=== PATIENT | male | born 1980 | race Caucasian/White ===

== ENCOUNTER → 2019-06-06 09:10 | Outpatient (BNVA) | payer BC, SELFPAY | PROVIDERS: Family Provider Family Medicine; PCP Family Medicine; Visit Provider Specialist | DX: G43.711 Chronic migraine without aura, intractable, with status migrainosus (principal); M50.022 Cervical disc disorder at C5-C6 level with myelopathy | CPT/HCPCS: 64615; 99212; J0585 ==

== ENCOUNTER → 2019-09-26 09:26 | Outpatient (BNVA) | payer BC, SELFPAY | PROVIDERS: Family Provider Family Medicine; PCP Family Medicine; Visit Provider Specialist | DX: G43.711 Chronic migraine without aura, intractable, with status migrainosus (principal); M50.022 Cervical disc disorder at C5-C6 level with myelopathy | CPT/HCPCS: 64615; 99212; J0585 ==

== ENCOUNTER → 2021-09-28 12:30 | Outpatient (BNVA) | payer BC, SELFPAY | PROVIDERS: Family Provider Family Medicine; PCP Family Medicine; Visit Provider Family Medicine | DX: Z01.89 Encounter for other specified special examinations (principal) | CPT/HCPCS: 80053; 80061 ==

== ENCOUNTER 2023-08-08 10:47 | Outpatient (RCR) | payer BC, SELFPAY | END 2023-09-05 23:59 | disposition home or self-care (01) | LOC: SOT 10:47 | PROVIDERS: PCP Family Medicine; Visit Provider Orthopaedic Surgery Sports Medicine | DX: G56.33 Lesion of radial nerve, bilateral upper limbs (principal); M77.11 Lateral epicondylitis, right elbow | CPT/HCPCS: 97035; 97110; 97140; 97166; 97530; G0283 ==

== ENCOUNTER → 2024-11-21 14:54 | Outpatient (BNVA) | payer BC, SELFPAY | PROVIDERS: PCP Family Medicine; Visit Provider Registered Nurse Neonatal Intensive Care | DX: R06.00 Dyspnea, unspecified (principal); R06.2 Wheezing; D71 Functional disorders of polymorphonuclear neutrophils | CPT/HCPCS: 71046 ==

== ENCOUNTER 2025-01-26 13:40 | Emergency (ER) | payer BC, SELFPAY ==
[2025-01-26 13:44] VITALS: BP 151/85; PULSE 104; RESP 16; TEMP 36.9; O2SAT 100
--- OUTSIDE RECORDS SUMMARY | 2025-01-26 13:44 | XMS_ITS | Encounter Summary ---
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
--- OUTSIDE RECORDS SUMMARY | 2025-01-26 13:44 | XMS_ITS | Encounter Summary ---
Author Organization [facility] Address [address] [place] [address] Care Team Providers Care Pest Technician Name Role Phone Unavailable Primary Care Provider Unavailabl e Encounter Details Date Type Department Care Team (Latest Contact Info) Description 10/26/1998 Outpatient Historical [facility] Gibran Ahumada, Schuyler aHhn MD [address] [place] [id number] Chest pain, unspecified (Primary Dx); Other dyspnea and respiratory abnormality Social History Tobacco Use Types Packs/Day Years Used Date Smoking Tobacco: Never Assessed Sex and Gender Information Value Date Recorded Sex Assigned at Not on file 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
--- OUTSIDE RECORDS SUMMARY | 2025-01-26 13:44 | XMS_ITS | Encounter Summary ---
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
--- OUTSIDE RECORDS SUMMARY | 2025-01-26 13:44 | XMS_ITS | Encounter Summary ---
Author Organization [facility] Address [address] [place] [address] Care Team Providers Care Sealing And Canceling Machine Operator Name Role Phone Unavailable Primary Care Provider Unavailabl e Encounter Details Date Type Department Care Team (Latest Contact Info) Description 06/19/2001 Outpatient Historical [facility] Andrade Kennedy MD [address] [place] [address] ACUTE PHARYNGITIS (Primary Dx); ACUTE TONSILLITIS; TINNITUS NOS Social History Tobacco Use Types Packs/Day Years Used Date Smoking Tobacco: Never Assessed Sex and Gender Information Value Date Recorded Sex Assigned at Not on file 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
--- OUTSIDE RECORDS SUMMARY | 2025-01-26 13:44 | XMS_ITS | Encounter Summary ---
Author Organization [facility] Address [address] [place] [address] Care Team Providers Care Legal Billing Coordinator Name Role Phone Unavailable Primary Care Provider Unavailabl e Encounter Details Date Type Department Care Team (Latest Contact Info) Description 11/02/2000 Outpatient Historical [facility] Gibran Ahumada, Schuyler Hahn MD [address] [place] [phone] Acute sinusitis, unspecified (Primary Dx); Acute pharyngitis Social History Tobacco Use Types Packs/Day Years Used Date Smoking Tobacco: Never Assessed Sex and Gender Information Value Date Recorded Sex Assigned at Not on file 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
--- OUTSIDE RECORDS SUMMARY | 2025-01-26 13:44 | XMS_ITS | Encounter Summary ---
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
--- OUTSIDE RECORDS SUMMARY | 2025-01-26 13:44 | XMS_ITS | Encounter Summary ---
Author Organization [facility] Address [address] [place] [address] Care Team Providers Care Shank Breaker Name Role Phone Unavailable Primary Care Provider Unavailabl e Encounter Details Date Type Department Care Team (Late st Contact Info) Description 03/13/2001 Outpatient Historical [facility] Malachi Conroy MD [address], [place] [id number] DENTAL CARIES (Primary Dx) Social History Tobacco Use Types Packs/Day Years Used Date Smoking Tobacco: Never Assessed Sex and Gender Information Value Date Recorded Sex Assigned at Not on file 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
--- OUTSIDE RECORDS SUMMARY | 2025-01-26 13:44 | XMS_ITS | Clinical Summary ---
Author Organization [employer] Address [address] 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
--- NOTE | 2025-01-26 13:51 | CTR_ITS ---
PROCEDURE INFORMATION: Exam: CT Abdomen And Pelvis With Contrast Exam date and time: 01/26/2025 2:03 PM Age: 44 years old Clinical indication: Abdominal pain; Localized; Right upper quadrant (ruq); Additional info: Abd pain TECHNIQUE: Imaging protocol: Computed tomography of the abdomen and pelvis with contrast. Radiation optimization: All CT scans at this facility use at least one of these dose optimization techniques: automated exposure control; mA and/or kV adjustment per patient size (includes targeted exams where dose is matched to clinical indication); or iterative reconstruction. Contrast material: OMNI 350; Contrast volume: 100 ml; Contrast route: INTRAVENOUS (IV); COMPARISON: CR XR chest 2V* [id number] 11/21/2024 2:57 PM RADIATION DOSE METRICS: Total DLP (mGy-cm): 931.13 FINDINGS: Liver: Hepatomegaly. The liver is diffusely decreased in density, compatible with hepatic steatosis. No liver mass. Gallbladder and biliary ducts: No evidence of calcified intraluminal gallstones. No pericholecystic inflammatory changes.There is no evidence of biliary ductal dilation. Pancreas: The pancreas is normal. No mass. Spleen: The spleen is normal. Adrenal glands: The adrenal glands are normal. Kidneys and ureters: No renal mass or hydronephrosis. Stomach and bowel: The colon is collapsed and diffuse mural thickening could be present. No pericolonic inflammatory changes. Bowel caliber is normal. Appendix: Normal appendix. Intraperitoneal space: No significant peritoneal free fluid. No free peritoneal air. Vasculature: Aortic caliber is normal. Lymph nodes: No lymph node enlargement. Urinary bladder: No focal wall thickening of the urinary bladder. Reproductive: Visualized portions of the male reproductive tract are unremarkable, though routine CT is limited in this regard. Bones/joints: Subarticular sclerotic densities in the femoral heads concerning for avascular necrosis. Femoral head articular contour remains normal. No other acute osseous abnormality. Soft tissues: Unremarkable. CT/CT abdomen pelvis w con* [id number] IMPRESSION: 1. The colon is collapsed and diffuse mural thickening could be present. Correlate clinically for the possibility of colitis. 2. Hepatomegaly and hepatic steatosis.
--- NOTE | 2025-01-26 13:52 | W.ED.ABDPA2 ---
HPI - Abdominal Pain General: Chief Complaint: Abdominal Pain Stated Complaint: mass on adb Time Seen by Provider: 01/26/25 13:42 Source: patient Mode of arrival: ambulatory Limitations: no limitations History of Present Illness: 44-year-old male states been having right upper quadrant pain over the last 2 weeks. He states he feels like he has a knot in the right upper part of his stomach that is tender to touch. 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 states pain is much worse with palpation denies any vomiting diarrhea or fever Associated Symptoms: Denies fever(s), nausea and vomiting Related Data Home Medications ?Medication ?Instructions ?Recorded ?Confirmed loratadine 10 mg tablet (Claritin) 10 mg PO DAILY 01/26/25 01/26/25 pantoprazole 40 mg tablet,delayed 40 mg PO DAILY 01/26/25 01/26/25 release Previous Rx's ?Medication ?Instructions ?Recorded albuterol sulfate 90 mcg/actuation 2 puff inhalation Q6H PRN 11/21/24 aerosol inhaler (Ventolin HFA) shortness of breath or wheezing #8.5 grams lorazepam 1 mg tablet 1 mg PO BID PRN anxiety/sleep #120 01/08/25 tabs hydrocodone 10 mg-acetaminophen 1 tab PO TID PRN pain 1 month #90 01/13/25 325 mg tablet tabs Allergies Allergy/AdvReac Type Severity Reaction Status Date / Time metaxalone (From Skelaxin) Allergy Intermediate ADR-Anxiety Verified 01/26/25 13:49 Review of Systems Const: Denies: fever(s) Card: Denies: chest pain GI: Reports: abdominal pain; Denies: nausea or vomiting : Denies: flank pain or difficulty urinating [facility] PFSH: Medical History Allergic rhinitis due to allergen Acute pharyngitis Social History Smoking and tobacco/nicotine status: current every day tobacco/nicotine user Physical Exam Const: COMMON NORMALS: no acute distress, patient oriented x3 and healthy appearing HENMT: COMMON NORMALS: normocephalic and atraumatic HEAD & SCALP: normocephalic and atraumatic Neck/C-Spine: COMMON NORMALS: full ROM and supple Chest: COMMONS NORMALS: normal inspection of the chest Resp: COMMON NORMALS: normal respiratory effort Cardio: COMMON NORMALS: regular rate RATE: regular rate GI: COMMON NORMALS: Normal to inspection, nondistended, normoactive bowel sounds present, Soft to palpation and no masses PALPATION: Yes Soft to palpation OTHER: tenderness to ruq Extremity: COMMON NORMALS: normal to inspection and full ROM Neuro: COMMON NORMALS: patient oriented x3, moves all extremities and no focal motor deficits Psych: COMMON NORMALS: mental status grossly normal, Normal thought process present and cooperative THOUGHT PROCESS: Normal thought process present Skin: COMMON NORMALS: no rashes or lesions noted and no wounds GENERAL SKIN EXAM: no rashes or lesions noted Course Vital Signs: Vital signs: Vital Signs Temperature 98.5 F 01/26/25 13:44 Pulse Rate 104 H 01/26/25 13:44 Respiratory Rate 17 01/26/25 14:15 Blood Pressure 133/90 01/26/25 14:28 Pulse Oximetry 93 01/26/25 14:28 Oxygen Delivery Me thod Room Air 01/26/25 14:28 MDM - Abdominal Pain Medical Decision Making Patient presents here with abdominal pain is likely muscular in nature CT scan showed no acute findings his symptoms are not consistent with colitis his white count electrolytes are all normal he feels improved abdominal exam at discharge is benign I did review labs and film with patient he stable for discharge he is to follow-up with his PCP and return if worsening. Differential Diagnosis Likely abdominal pain, acute appendicitis, constipation, diverticulitis, gastroenteritis, pancreatitis and small bowel obstruction Medical Records I reviewed the patient's medical records. Lab Data I reviewed the patient's lab results. 01/26/25 14:00 01/26/25 14:00 Labs/Radiology: Radiology Impressions Abdomen/Pelvis CT 01/26/25 13:51 IMPRESSION: 1. The colon is collapsed and diffuse mural thickening could be present. Correlate clinically for the possibility of colitis. 2. Hepatomegaly and hepatic steatosis. Laboratory Results WBC 8.72 10^3/uL (3.29-11.43) 01/26/25 14:00 RBC 5.54 10^6/uL (3.85-5.65) 01/26/25 14:00 Hgb 16.30 g/dL (11.27-16.99) 01/26/25 14:00 Hct 48.7 % (37-53) 01/26/25 14:00 MCV 87.9 fl (82-101) 01/26/25 14:00 MCH 29.4 pg (27-33) 01/26/25 14:00 MCHC 33.5 g/dL (30-55) 01/26/25 14:00 RDW 14.3 % (12.1-15.1) 01/26/25 14:00 Plt Count 177 10^3/cmm (157-399) 01/26/25 14:00 MPV 9.5 fL (7.4-10.4) 01/26/25 14:00 Neut % (Auto) 71.3 % 01/26/25 14:00 Lymph % (Auto) 17.4 % 01/26/25 14:00 [place] % (Auto) 10.6 % 01/26/25 14:00 Eos % (Auto) 0.2 % 01/26/25 14:00 Baso % (Auto) 0.2 % 01/26/25 14:00 Neut # (Auto) 6.21 10^3/uL (1.8-7.7) 01/26/25 14:00 Lymph # (Auto) 1.5 10^3/uL (0.8-4.8) 01/26/25 14:00 [place] # (Auto) 0.9 10^3/uL (0.2-0.9) 01/26/25 14:00 Eos # (Auto) 0.0 10^3/uL (0.0-0.8) 01/26/25 14:00 Baso # (Auto) 0.0 10^3/uL (0.0-0.1) 01/26/25 14:00 Nucleated RBC % (auto) 0 % 01/26/25 14:00 Nucleated RBCs # 0.0 /100WBC 01/26/25 14:00 Sodium 134 mmol/L (136-145) L 01/26/25 14:00 Potassium 4.1 mmol/L (3.5-5.1) 01/26/25 14:00 Chloride 98 mmol/L (98-107) 01/26/25 14:00 Carbon Dioxide 22 mmol/L (22-29) 01/26/25 14:00 Anion Gap 18.1 (5-19) 01/26/25 14:00 BUN 17 mg/dL (6-20) 01/26/25 14:00 Creatinine 0.9 mg/dL (0.7-1.2) 01/26/25 14:00 GFR Calculation 91.3 mL/min (90-130) 01/26/25 14:00 Glucose 131 mg/dL (65-115) H 01/26/25 14:00 Calculated Osmolality 281 mOsm/kg (285-295) L 01/26/25 14:00 Calcium 9.1 mg/dL (8.5-10.5) 01/26/25 14:00 Total Bilirubin 0.5 mg/dL (0.15-1.2) 01/26/25 14:00 AST 27 U/L (0-40) 01/26/25 14:00 ALT 33 U/L (0-41) 01/26/25 14:00 Alkaline Phosphatase 83 U/L (40-130) 01/26/25 14:00 Total Protein 7.6 g/dL (6.6-8.7) 01/26/25 14:00 Albumin 4.3 g/dL (3.5-5.2) 01/26/25 14:00 Globulin 3.3 g/dL (1.3-4.6) 01/26/25 14:00 Lipase 57 U/L (13-60) 01/26/25 14:00 All radiology interpretation(s) finalized by discharge Discharge Plan Discharge Patient Disposition: Home Clinical Impression: Abdominal pain Condition: Stable Prescriptions: No Action albuterol sulfate [Ventolin HFA] 90 mcg/actuation HFA aerosol inhaler 2 puff inhalation Q6H PRN (Reason: shortness of breath or wheezing) Qty: 8.5 0RF lorazepam 1 mg tablet 1 mg PO BID PRN (Reason: anxiety/sleep) Qty: 120 3RF hydrocodone-acetaminophen 10-325 mg tablet 1 tab PO TID PRN (Reason: pain) 30 Days Qty: 90 0RF loratadine [Claritin] 10 mg Tablet 10 mg PO DAILY pantoprazole 40 mg tablet,delayed release (DR/EC) 40 mg PO DAILY Discharge Orders: Discharge ED (Routine); Ordered 01/26/25 Ordered By: Ortega Tafoya Referrals: José Miguel Ocampo, [Primary Care Provider, Family Practice] - 4-7 days Discharge Diet: Advance as tolerated Discharge Activity: Resume usual activity Patient Instructions: Abdominal Pain (ED) Print Language: South African Coding Level of Care Code ED Tank Officer for Kristal Lorenzo
[2025-01-26 14:05] LABS: Hematocrit 48.7 % (37-53); Hemoglobin 16.30 g/dL (11.27-16.99); Mean Corpuscular HGB Conc 33.5 g/dL (30-55); Mean Corpuscular Hemoglobin 29.4 pg (27-33); Mean Corpuscular Volume 87.9 fl (82-101); Nucleated Red Blood Cells % 0 %; Platelet Count 177 10^3/cmm (157-399); Red Blood Count 5.54 10^6/uL (3.85-5.65); White Blood Count 8.72 10^3/uL (3.29-11.43)
[2025-01-26] MEDS: iohexol 350 mg/mL 500 mL Btl (per mL) IV (14:06)
[2025-01-26 14:15] VITALS: RESP 17
[2025-01-26] MEDS: ondansetron 2 mg/ML SDV 2 mL 4 MG IVP (14:15)
[2025-01-26] MEDS: morphine 4 mg/mL SDV 1 mL IVP (14:15)
[2025-01-26 14:22] LABS: Alanine Aminotransferase 33 U/L (0-41); Albumin Level 4.3 g/dL (3.5-5.2); Alkaline Phosphatase 83 U/L (40-130); Anion Gap 18.1 (5-19); Aspartate Amino Transferase 27 U/L (0-40); Blood Urea Nitrogen 17 mg/dL (6-20); Calcium 9.1 mg/dL (8.5-10.5); Carbon Dioxide 22 mmol/L (22-29); Chloride 98 mmol/L (98-107); Creatinine Clr Calc Pharmacy 126.7218; Globulin 3.3 g/dL (1.3-4.6); Glucose 131 mg/dL (65-115); Lipase 57 U/L (13-60); Osmolality Calculated 281 mOsm/kg (285-295); Potassium 4.1 mmol/L (3.5-5.1); Sodium 134 mmol/L (136-145); Total Protein 7.6 g/dL (6.6-8.7)
[2025-01-26 14:28] VITALS: BP 133/90; O2SAT 93
[2025-01-26 15:31] VITALS: BP 123/81; PULSE 104; RESP 18; O2SAT 91
== END 2025-01-26 15:32 | disposition home or self-care (01) ==
PROVIDERS: Emergency Provider Emergency Medicine; PCP Family Medicine
DX: R10.11 Right upper quadrant pain (principal)
CPT/HCPCS: 74177; 80053; 83690; 85025; 96374; 96375; 99285; J2270; J2405